=== PATIENT | female | born 1940 | race Caucasian/White ===

== ENCOUNTER 2024-11-05 12:20 | Inpatient (IN) | payer MEDICARE, OTHER, MEDICAID ==
[2024-11-05] MEDS ORDERED: Sodium Chloride 0.9% 10 ML Syringe FLUSH PRN (12:21)
[2024-11-05 12:42] LABS: BASOPHILS PERCENT AUTO 0.1 % (0.2-1.2); EOSINOPHILS PERCENT AUTO 0.2 % (0.0-4.0); HEMATOCRIT 57.2 % (33.0-47.0); HEMOGLOBIN 16.3 g/dL (12.0-16.0); IMMATURE GRAN ABSOLUTE AUTO 0.09 x10^3/uL (0.00-0.07); LYMPHOCYTES ABSOLUTE AUTO 3.4 x10^3/uL (1.0-4.8); LYMPHOCYTES PERCENT AUTO 18.5 % (25.0-50.0); MEAN CORPUSCULAR HEMOGLOBIN 28.6 pg (26.0-32.0); MEAN CORPUSCULAR VOLUME 100.5 fL (78.0-93.0); MONOCYTES ABSOLUTE AUTO 1.3 x10^3/uL (0.0-0.8); NEUTROPHILS ABSOLUTE AUTO 13.3 x10^3/uL (1.8-7.7); NEUTROPHILS PERCENT AUTO 73.7 % (50.0-80.0); PLATELET COUNT,PLT 194 x10^3/uL (130-400); RED BLOOD CELL COUNT 5.69 x10^6/uL (4.00-5.50); WHITE BLOOD CELL COUNT,WBC 18.1 x10^3/uL (4.0-10.0)
[2024-11-05 13:03] LABS: INR 1.2 (0.9-1.1); PROTHROMBIN TIME 12.8 SEC (9.6-12.0); PTT,PARTIAL THROMBOPLSTIN TIME 24.2 SEC (23.5-33.2)
[2024-11-05 13:06] LABS: MEAN CORPUSCULAR HGB CONC 28.5 g/dL (32.0-36.0)
[2024-11-05 13:13] LABS: A/G RATIO 0.79; ALANINE AMINOTRANSFERASE,ALT 55 U/L (14-59); ALBUMIN 3.8 g/dL (3.4-5.0); ALKALINE PHOSPHATASE 274 U/L (46-116); ASPARTATE AMNIOTRANSFERASE,AST 125 U/L (15-37); BILIRUBIN TOTAL 0.7 mg/dL (0.2-1.0); BLOOD UREA NITROGEN,BUN 46 mg/dL (7-18); C-REACTIVE PROTEIN 4.49 mg/dL (<=0.50); CALCIUM 10.2 mg/dL (8.5-10.1); CARBON DIOXIDE,CO2 31 mmol/L (21-32); CREATININE 1.8 mg/dL (0.55-1.02); GLUCOSE RANDOM 192 mg/dL (70-99); POTASSIUM,K 3.8 mmol/L (3.5-5.1); PROTEIN TOTAL,TP 8.6 g/dL (6.4-8.2)
[2024-11-05 13:21] LABS: ANION GAP 16.8 mmol/L (5-15); CHLORIDE,CL 122 mmol/L (98-107); ESTIMATED GFR 28 mL/min (>=60); ETHANOL BLOOD MEDICAL < 3 mg/dL (0-3)
[2024-11-05 13:22] LABS: SODIUM,NA 166 mmol/L (136-145)
[2024-11-05] MEDS: Lactated Ringers 1,000 ML IV ONE (13:51)
[2024-11-05 13:53] LABS: APPEARANCE,URINE CLEAR (CLEAR); BILIRUBIN,URINE SMALL (NEGATIVE); COLOR,URINE YELLOW (YELLOW); GLUCOSE,URINE NEGATIVE (NEGATIVE); KETONES,URINE TRACE mg/dL (NEGATIVE); LEUKOCYTE ESTERASE,URINE SMALL (NEGATIVE); NITRITE,URINE NEGATIVE (NEGATIVE); OCCULT BLOOD,URINE TRACE-LYSED (NEGATIVE); PROTEIN,URINE 100 mg/dL (NEGATIVE)
[2024-11-05 13:58] LABS: AMPHETAMINES SCREEN, URINE NEGATIVE (NEGATIVE); BARBITURATE SCREEN,URINE NEGATIVE (NEGATIVE)
[2024-11-05 14:00] LABS: BENZODIAZEPINES SCREEN,URINE NEGATIVE (NEGATIVE); BUPRENORPHINE SCREEN,URINE NEGATIVE (NEGATIVE); COCAINE METABOLITES,URINE NEGATIVE (NEGATIVE); METHADONE SCREEN, URINE NEGATIVE (NEGATIVE); METHAMPHETAMINE SCREEN, URINE NEGATIVE (NEGATIVE); OXYCODONE SCREEN,URINE POSITIVE (NEGATIVE)
[2024-11-05 14:01] LABS: PCP SCREEN,URINE NEGATIVE (NEGATIVE); THC SCREEN,URINE 50 NG/ML NEGATIVE (NEGATIVE)
[2024-11-05 14:05] LABS: BACTERIA,URINE MODERATE /HPF (NOT SEEN); SQUAMOUS EPITHELIAL CELLS,UR RARE /HPF (NOT SEEN)
[2024-11-05 14:06] LABS: AMORPHOUS SEDIMENT,URINE MANY; MUCUS,URINE FEW /LPF (NOT SEEN)
[2024-11-05] MEDS: cefTRIAXone 1 GM Vial IVPUSH ONE (14:50)
[2024-11-05 15:10] LABS: LACTIC ACID 4.3 mmol/L (0.4-2.0)
[2024-11-05] MEDS: Lactated Ringers 2,000 ML IV ONE ×2 (15:45→18:35)
[2024-11-05] MEDS: Dextrose 5% in Water 1,000 ML IV SCH (15:46)
[2024-11-05] MEDS: VANCOmycin 1.25 GM/250 ML 250 ML IV ONE (15:58)
[2024-11-05] MEDS ORDERED: Albuterol 0.083% 2.5 MG/3 ML Neb Soln NEB PRN (16:36)
[2024-11-05] MEDS ORDERED: Polyethylene Glycol 3350 Powder 17 GM Packet PO PRN (16:36)
[2024-11-05] MEDS ORDERED: Ondansetron 4 MG/2 ML SDV IV PRN (16:36)
[2024-11-05] MEDS ORDERED: Acetaminophen 325 MG Tab PO PRN (16:36)
[2024-11-05] MEDS ORDERED: Melatonin 3 MG Tab PO PRN (16:36)
[2024-11-05] MEDS ORDERED: Ondansetron 4 MG Tab.DIS PO PRN (16:36)
[2024-11-05] MEDS ORDERED: oxyCODONE 5 MG Tab PO PRN (16:36)
[2024-11-05] MEDS ORDERED: Famotidine 20 MG Tab PO PRN (16:42)
[2024-11-05] MEDS ORDERED: Loratadine 10 MG Tab PO PRN (16:42)
[2024-11-05 17:41] LABS: CREATININE 1.3 mg/dL (0.55-1.02); EST CRCL DRUG DOSING (CG) 28.31 mL/min; POTASSIUM,K 3.3 mmol/L (3.5-5.1)
[2024-11-05 17:54] LABS: ANION GAP 15.3 mmol/L (5-15)
[2024-11-05] MEDS: Donepezil 10 MG Tab PO SCH (22:00)
[2024-11-06 07:07] LABS: CALCIUM 8.5 mg/dL (8.5-10.1); CREATININE 1.1 mg/dL (0.55-1.02); EST CRCL DRUG DOSING (CG) 33.46 mL/min
[2024-11-06 07:09] LABS: BASOPHILS ABSOLUTE AUTO 0.1 x10^3/uL (0.0-0.2); BASOPHILS PERCENT AUTO 0.5 % (0.2-1.2); EOSINOPHILS ABSOLUTE AUTO 0.2 x10^3/uL (0.0-0.5); EOSINOPHILS PERCENT AUTO 1.3 % (0.0-4.0); HEMATOCRIT 40.6 % (33.0-47.0); HEMOGLOBIN 11.8 g/dL (12.0-16.0); IMMATURE GRAN ABSOLUTE AUTO 0.06 x10^3/uL (0.00-0.07); LYMPHOCYTES ABSOLUTE AUTO 2.2 x10^3/uL (1.0-4.8); LYMPHOCYTES PERCENT AUTO 18.2 % (25.0-50.0); MEAN CORPUSCULAR HEMOGLOBIN 29.4 pg (26.0-32.0); MEAN CORPUSCULAR HGB CONC 29.1 g/dL (32.0-36.0); MONOCYTES ABSOLUTE AUTO 0.8 x10^3/uL (0.0-0.8); MONOCYTES PERCENT AUTO 6.8 % (2.0-11.0); NEUTROPHILS ABSOLUTE AUTO 8.8 x10^3/uL (1.8-7.7); NEUTROPHILS PERCENT AUTO 72.7 % (50.0-80.0); PLATELET COUNT,PLT 122 x10^3/uL (130-400); RED BLOOD CELL COUNT 4.02 x10^6/uL (4.00-5.50); WHITE BLOOD CELL COUNT,WBC 12.1 x10^3/uL (4.0-10.0)
[2024-11-06 07:14] LABS: ANION GAP 11.9 mmol/L (5-15)
[2024-11-06 07:16] LABS: POTASSIUM,K 2.9 mmol/L (3.5-5.1)
[2024-11-06] MEDS ORDERED: atorvaSTATin 10 MG Tab PO SCH (09:00)
[2024-11-06] MEDS: Pantoprazole 40 MG Tab.CR PO SCH (09:31)
[2024-11-06] MEDS: D5 1/2 NS w/ 40 mEq/L KCl 1,000 ML IV SCH (09:52)
[2024-11-06] MEDS: cefTRIAXone 1 GM Vial IVPUSH SCH (13:27)
[2024-11-06 17:16] LABS: CALCIUM 8.2 mg/dL (8.5-10.1); CREATININE 1.1 mg/dL (0.55-1.02); EST CRCL DRUG DOSING (CG) 33.46 mL/min; POTASSIUM,K 3.3 mmol/L (3.5-5.1)
[2024-11-06 17:17] LABS: ANION GAP 13.3 mmol/L (5-15)
[2024-11-06] MEDS: Dextrose 5% in Water 1,000 ML IV SCH (22:26)
[2024-11-07 07:52] LABS: BASOPHILS PERCENT AUTO 0.2 % (0.2-1.2); EOSINOPHILS ABSOLUTE AUTO 0.2 x10^3/uL (0.0-0.5); EOSINOPHILS PERCENT AUTO 1.8 % (0.0-4.0); HEMATOCRIT 37.3 % (33.0-47.0); HEMOGLOBIN 11.3 g/dL (12.0-16.0); IMMATURE GRAN ABSOLUTE AUTO 0.08 x10^3/uL (0.00-0.07); LYMPHOCYTES ABSOLUTE AUTO 2.2 x10^3/uL (1.0-4.8); LYMPHOCYTES PERCENT AUTO 22.7 % (25.0-50.0); MEAN CORPUSCULAR HEMOGLOBIN 28.8 pg (26.0-32.0); MEAN CORPUSCULAR HGB CONC 30.3 g/dL (32.0-36.0); MEAN CORPUSCULAR VOLUME 94.9 fL (78.0-93.0); MONOCYTES ABSOLUTE AUTO 0.7 x10^3/uL (0.0-0.8); MONOCYTES PERCENT AUTO 7.2 % (2.0-11.0); NEUTROPHILS ABSOLUTE AUTO 6.6 x10^3/uL (1.8-7.7); NEUTROPHILS PERCENT AUTO 67.3 % (50.0-80.0); PLATELET COUNT,PLT 90 x10^3/uL (130-400); RED BLOOD CELL COUNT 3.93 x10^6/uL (4.00-5.50); WHITE BLOOD CELL COUNT,WBC 9.7 x10^3/uL (4.0-10.0)
[2024-11-07 08:08] LABS: CALCIUM 7.8 mg/dL (8.5-10.1); CREATININE 0.9 mg/dL (0.55-1.02); EST CRCL DRUG DOSING (CG) 40.9 mL/min
[2024-11-07 08:25] LABS: ANION GAP 11.9 mmol/L (5-15); POTASSIUM,K 2.9 mmol/L (3.5-5.1)
[2024-11-07] MEDS: D5 1/2 NS w/ 40 mEq/L KCl 1,000 ML IV SCH (10:19)
[2024-11-07] MEDS: Magnesium Sulfate 2 GM/50 mL 2 GM in Premix Bag 1 BAG IV ONE (10:34)
[2024-11-08 08:24] LABS: BASOPHILS PERCENT AUTO 0.1 % (0.2-1.2); EOSINOPHILS ABSOLUTE AUTO 0.2 x10^3/uL (0.0-0.5); EOSINOPHILS PERCENT AUTO 2.3 % (0.0-4.0); HEMATOCRIT 38.5 % (33.0-47.0); HEMOGLOBIN 11.9 g/dL (12.0-16.0); IMMATURE GRAN ABSOLUTE AUTO 0.07 x10^3/uL (0.00-0.07); LYMPHOCYTES PERCENT AUTO 21.4 % (25.0-50.0); MEAN CORPUSCULAR HEMOGLOBIN 28.7 pg (26.0-32.0); MEAN CORPUSCULAR HGB CONC 30.9 g/dL (32.0-36.0); MONOCYTES ABSOLUTE AUTO 0.7 x10^3/uL (0.0-0.8); MONOCYTES PERCENT AUTO 7.5 % (2.0-11.0); NEUTROPHILS ABSOLUTE AUTO 6.4 x10^3/uL (1.8-7.7); PLATELET COUNT,PLT 107 x10^3/uL (130-400); RED BLOOD CELL COUNT 4.14 x10^6/uL (4.00-5.50); WHITE BLOOD CELL COUNT,WBC 9.5 x10^3/uL (4.0-10.0)
[2024-11-08 08:33] LABS: CALCIUM 8.1 mg/dL (8.5-10.1); CREATININE 0.8 mg/dL (0.55-1.02); EST CRCL DRUG DOSING (CG) 46.01 mL/min
[2024-11-08] MEDS: Magnesium Sulfate 2 GM/50 mL 2 GM in Premix Bag 1 BAG IV ONE (11:55)
[2024-11-08] MEDS: D5 1/2 NS w/ 40 mEq/L KCl 1,000 ML IV SCH (12:03)
[2024-11-09 06:48] LABS: BASOPHILS PERCENT AUTO 0.2 % (0.2-1.2); EOSINOPHILS ABSOLUTE AUTO 0.2 x10^3/uL (0.0-0.5); EOSINOPHILS PERCENT AUTO 2.8 % (0.0-4.0); HEMATOCRIT 38.1 % (33.0-47.0); IMMATURE GRAN ABSOLUTE AUTO 0.07 x10^3/uL (0.00-0.07); LYMPHOCYTES ABSOLUTE AUTO 1.5 x10^3/uL (1.0-4.8); LYMPHOCYTES PERCENT AUTO 18.5 % (25.0-50.0); MEAN CORPUSCULAR HEMOGLOBIN 29.1 pg (26.0-32.0); MEAN CORPUSCULAR HGB CONC 31.5 g/dL (32.0-36.0); MEAN CORPUSCULAR VOLUME 92.5 fL (78.0-93.0); MONOCYTES ABSOLUTE AUTO 0.7 x10^3/uL (0.0-0.8); MONOCYTES PERCENT AUTO 8.9 % (2.0-11.0); NEUTROPHILS ABSOLUTE AUTO 5.6 x10^3/uL (1.8-7.7); NEUTROPHILS PERCENT AUTO 68.7 % (50.0-80.0); PLATELET COUNT,PLT 127 x10^3/uL (130-400); RED BLOOD CELL COUNT 4.12 x10^6/uL (4.00-5.50); WHITE BLOOD CELL COUNT,WBC 8.2 x10^3/uL (4.0-10.0)
[2024-11-09 06:59] LABS: CALCIUM 8.1 mg/dL (8.5-10.1); CREATININE 0.9 mg/dL (0.55-1.02); EST CRCL DRUG DOSING (CG) 40.9 mL/min; POTASSIUM,K 3.3 mmol/L (3.5-5.1)
[2024-11-09 07:00] LABS: ANION GAP 12.3 mmol/L (5-15)
== END 2024-11-09 15:00 | DRG 871 ==
LOC: VM.ED 12:20 → VM.MS 14:41
PROVIDERS: ADMIT Internal Medicine; ATTEND Internal Medicine
DX: A41.81 Sepsis due to Enterococcus (principal); G93.41 Metabolic encephalopathy; N17.9 Acute kidney failure, unspecified; R41.82 Altered mental status, unspecified; F03.94 Unspecified dementia, unspecified severity, with anxiety; E87.20 Acidosis, unspecified; E87.0 Hyperosmolality and hypernatremia; N30.90 Cystitis, unspecified without hematuria; Z66 Do not resuscitate; R65.20 Severe sepsis without septic shock; E78.5 Hyperlipidemia, unspecified; G47.00 Insomnia, unspecified; E83.42 Hypomagnesemia; R80.9 Proteinuria, unspecified; F11.91 Opioid use, unspecified, in remission; E86.0 Dehydration; R73.9 Hyperglycemia, unspecified; E87.6 Hypokalemia; F12.90 Cannabis use, unspecified, uncomplicated; E83.52 Hypercalcemia; K21.9 Gastro-esophageal reflux disease without esophagitis; M81.0 Age-related osteoporosis without current pathological fracture; Z96.611 Presence of right artificial shoulder joint; Z88.8 Allergy status to other drugs, medicaments and biological substances; Z98.890 Other specified postprocedural states; N39.0 Urinary tract infection, site not specified; Z79.899 Other long term (current) drug therapy
CPT/HCPCS: 36415; 70450; 71045; 80053; 80305; 80307; 81001; 83605; 83930; 84484; 85025; 85610; 85730; 86140; 87040 ×2; 87077 ×2; 87086; 87186; 93005; 93010; 96360; 99284; 99285; J7120; 71250; 73110-LT; 74176; 80048; 80202; 83735; 87070; 94760; 97162-GP; A9270-GY; J0696; J3372; J3475; J3480; J7070